=== PATIENT | female | born 1990 | race Caucasian/White ===

== ENCOUNTER → 2019-05-27 | Emergency (ER) | payer MEDICAID, OTHER ==
[~2019-05-27] VITALS: Ht 162.6 cm; Wt 54.9 kg
[2019-05-27 13:21] VITALS: BP 100/59
[2019-05-27 15:13] LABS: Basophils # (auto) 0 uL; Basophils % (auto) 0.3 % (0.0-2.0); Eosinophils # (auto) 0.1 uL; Hematocrit 37.9 % (36.0-46.0); Hemoglobin 12.9 g/dL (12.2-16.2); Lymphocytes # (auto) 1.5 uL; Lymphocytes % (auto) 19.1 % (10.0-50.0); Mean Corpuscular Hemoglobin 32.3 pg (28.0-32.0); Mean Corpuscular Hgb Conc. 34.2 g/dL (32.0-36.0); Mean Corpuscular Volume 94.6 fL (80.0-100.0); Monocytes # (auto) 0.6 uL; Monocytes % (auto) 7.4 % (0.0-12.0); Neutrophils # (auto) 5.5 uL; Neutrophils % (auto) 72.2 % (37.0-80.0); Platelet Count (auto) 286 10^3/uL (140-450); Red Cell Distribution Width 12.3 % (11.8-14.3); White Blood Cell 7.6 10^3/uL (4.4-10.8)
[2019-05-27 15:29] LABS: Urine Bacteria FEW /hpf (None Seen); Urine Blood 2+ /uL (Negative); Urine Specific Gravity 1.001 (1.001-1.035); Urine WBC <1 /hpf (0 - 5)
== END | disposition home or self-care (01) ==
LOC: ER 13:09
DX: O20.9 Hemorrhage in early pregnancy, unspecified (principal); Z3A.11 11 weeks gestation of pregnancy
CPT/HCPCS: 36415; 76801; 81001; 84702; 85025